=== PATIENT | male | born 1995 | race Caucasian/White ===

== ENCOUNTER 2019-07-17 08:59 | Emergency (ER) | payer MEDICAID ==
[~2019-07-17] VITALS: Ht 172.7 cm; Wt 60.0 kg
[2019-07-17 09:06] VITALS: BP 135/72
--- NOTE | 2019-07-17 09:32 | NUR ---
SARAH Smith at bedside.
[2019-07-17] MEDS ORDERED: FLUT16SP2 BOTHNARES (10:42)
[2019-07-17] MEDS ORDERED: CETI-90 PO (10:42)
== END 2019-07-17 10:58 | disposition home or self-care (01) ==
LOC: ER 09:00
DX: J32.9 Chronic sinusitis, unspecified (principal); R50.9 Fever, unspecified; J02.8 Acute pharyngitis due to other specified organisms; F17.200 Nicotine dependence, unspecified, uncomplicated; Z88.6 Allergy status to analgesic agent; Z88.1 Allergy status to other antibiotic agents; Z79.899 Other long term (current) drug therapy
CPT/HCPCS: 87081; 87880; 99283

== ENCOUNTER 2019-07-29 17:27 | Emergency (ER) | payer MEDICAID ==
[~2019-07-29] VITALS: Ht 172.7 cm; Wt 57.0 kg
[~2019-07-29 17:27] MED LIST: CETI-90 PO; FLUT16SP2 BOTHNARES
[2019-07-29 17:48] VITALS: BP 131/92
[2019-07-29] MEDS ORDERED: diphenhydrAMINE 25mg capsule PO ONE (19:00)
[2019-07-29] MEDS ORDERED: PRED20TA PO (19:14)
[2019-07-29] MEDS ORDERED: HYDR-3686 PO (19:14)
[2019-07-29] MEDS ORDERED: BETA15CR4 TOP (19:14)
[2019-07-29] MEDS ORDERED: dexamethasone 4mg tablet PO ONE (19:15)
== END 2019-07-29 19:40 | disposition home or self-care (01) ==
LOC: ER 17:27
DX: L23.7 Allergic contact dermatitis due to plants, except food (principal); Z56.0 Unemployment, unspecified; Z88.0 Allergy status to penicillin; Z88.1 Allergy status to other antibiotic agents; Z88.6 Allergy status to analgesic agent; Z79.899 Other long term (current) drug therapy
CPT/HCPCS: 99283; Q0163